=== PATIENT | female | born 1975 | race Caucasian/White ===

== ENCOUNTER 2021-12-18 10:00 | Outpatient (CLI) | payer BC ==
[~2021-12-18] VITALS: Ht 160 cm; Wt 54.4 kg
== END 2021-12-18 11:00 | disposition home or self-care (01) ==
LOC: SLB 10:00 → EDSTATUS 12-19 10:00
PROVIDERS: ATTEND Specialist
DX: Z01.812 Encounter for preprocedural laboratory examination (principal); N81.4 Uterovaginal prolapse, unspecified; N92.0 Excessive and frequent menstruation with regular cycle; N13.9 Obstructive and reflux uropathy, unspecified; N80.0 Endometriosis of uterus; Z20.822 Contact with and (suspected) exposure to COVID-19
CPT/HCPCS: 36415; U0003